=== PATIENT | female | born 1985 | race Caucasian/White ===

== ENCOUNTER 2016-05-21 16:15 | Emergency (ER) | payer OTHER ==
[2016-05-21 16:32] VITALS: BP 120/56; PULSE 93; TEMP 99.1; BMI 30.3
--- NOTE | 2016-05-21 17:38 | PDOC ---
History of Present Illness - General History Source: Patient Exam Limitations: No Limitations - History of Present Illness Initial Comments: 05/21/16 18:04 The patient is a 30 year old female with no significant past medical history, who presents to the ED with diffuse abdominal pain that began earlier today. Patient states she had a similar episode in mar/apr. She had an ultrasound and was diagnosed and treated for a UTI. Patient states the abdominal pain is worse while moving. Patient complains of some nausea, dysuria, and bloating, secondary to the abdominal pain. Patient denies fever, chills, vomiting. Patient states she has been eating normally PCP: Dr. Betty Shah <Karri Araujo - Last Filed: 05/21/16 18:15> <Rosemary Lariso - Last Filed: 05/21/16 22:26> - General Chief Complaint: Pain Stated Complaint: STOMACH PAIN Time Seen by Provider: 05/21/16 17:23 Past History <Karri Araujo - Last Filed: 05/21/16 18:15> - Psycho/Social/Smoking Cessation Hx Suicidal Ideation: No Smoking History: Never smoked Information on smoking cessation initiated: No <Rosemary Larios - Last Filed: 05/21/16 22:26> - Past Medical History Allergies/Adverse Reactions: Allergies Allergy/AdvReac Type Severity Reaction Status Date / Time No Known Allergies Allergy Verified 05/21/16 16:32 Home Medications: Ambulatory Orders Ibuprofen 800 mg PO TID #30 tablet 05/21/16 Oxycodone HCl/Acetaminophen [Percocet 5-325 mg Tablet] 1 - 2 tab PO Q6H #20 tablet MDD 4 05/21/16 Review of Systems - Review of Systems Able to Perform ROS?: Yes Comments:: 05/21/16 18:05 GENERAL/CONSTITUTIONAL: No fever or chills. No weakness. HEAD, EYES, EARS, NOSE AND THROAT: No change in vision. No ear pain or discharge. No sore throat. CARDIOVASCULAR: No chest pain or shortness of breath. RESPIRATORY: No cough, wheezing, or hemoptysis. GASTROINTESTINAL: + diffuse abdominal pain. + bloating. + nausea. No vomiting, diarrhea or constipation. GENITOURINARY: + dysuria. No frequency, or change in urination. MUSCULOSKELETAL: No joint or muscle swelling or pain. No neck or back pain. SKIN: No rash NEUROLOGIC: No headache, vertigo, loss of consciousness, or change in strength/ sensation. ENDOCRINE: No increased thirst. No abnormal weight change. HEMATOLOGIC/LYMPHATIC: No anemia, easy bleeding, or history of blood clots. ALLERGIC/IMMUNOLOGIC: No hives or skin allergy. <Karri Araujo - Last Filed: 05/21/16 18:15> *Physical Exam - Vital Signs Last Vital Signs Temp Pulse Resp BP Pulse Ox 99.1 F 93 H 18 120/56 100 05/21/16 16:29 05/21/16 16:29 05/21/16 16:29 05/21/16 16:29 05/21/16 16:29 - Physical Exam Comments: 05/21/16 18:15 GENERAL: Awake, alert, and fully oriented, in no acute distress HEAD: No signs of trauma EYES: PERRLA, EOMI, sclera anicteric, conjunctiva clear ENT: Auricles normal inspection, hearing grossly normal, nares patent, oropharynx clear without exudates. Moist mucosa NECK: Normal ROM, supple, no lymphadenopathy, JVD, or masses LUNGS: Breath sounds equal, clear to auscultation bilaterally. No wheezes, and no crackles HEART: Regular rate and rhythm, normal S1 and S2, no murmurs, rubs or gallops ABDOMEN: Abdominal tenderness diffusely, worse on right lower quadrant.Guarding on right lower quadrant, but no rebound. No masses. EXTREMITIES: Normal range of motion, no edema. No clubbing or cyanosis. No cords, erythema, or tenderness NEUROLOGICAL: Cranial nerves II through XII grossly intact. Normal speech, normal gait SKIN: Warm, Dry, normal turgor, no rashes or lesions noted. <Karri Araujo - Last Filed: 05/21/16 18:15> - Vital Signs Last Vital Signs Temp Pulse Resp BP Pulse Ox 99.1 F 93 H 18 120/56 100 05/21/16 16:29 05/21/16 16:29 05/21/16 16:29 05/21/16 16:29 05/21/16 16:29 <Rosemary Larios - Last Filed: 05/21/16 22:26> ED Treatment Course - ADDITIONAL ORDERS Additional order review: Laboratory Results 05/21/16 05/21/16 17:40 17:40 Urine Color Ltyellow Urine Appearance Slcloudy Urine pH 9.0 H Ur Specific [place] 1.019 Urine Protein Negative Urine Glucose (UA) Negative Urine Ketones Negative Urine Blood Negative Urine Nitrite Negative Urine Bilirubin Negative Urine Urobilinogen Negative Ur Leukocyte Esterase 1+ H Urine RBC 1 Urine WBC 7 Ur Epithelial Cells Moderate Urine Bacteria Rare Urine Mucus Rare Urine HCG, Qual Negative <Karri Araujo - Last Filed: 05/21/16 18:15> - LABORATORY CBC & Chemistry Diagram: 05/21/16 18:45 05/21/16 18:45 <Rosemary Larios - Last Filed: 05/21/16 22:26> Medical Decision Making - Medical Decision Making 05/21/16 19:[address] Hines. Noted to have RLQ and LLQ pain, worse on the R side. She is guarding on exam. DDx includes ovarian cyst vs appendicitis. Awaiting CT a/p. She has declined pain meds so far. <Rosemary Larios - Last Filed: 05/21/16 22:26> *DC/Admit/Observation/Transfer - Attestations Scribe Attestion: 05/21/16 18:06 Documentation prepared by Karri Araujo, acting as medical laboratory technologist for Rosemary Larios MD, . <Karri Araujo - Last Filed: 05/21/16 18:15> <Rosemary Larios - Last Filed: 05/21/16 22:26> Diagnosis at time of Disposition: Ovarian cyst Qualifiers: Laterality: bilateral Qualified Code(s): N83.20 - Unspecified ovarian cysts - Discharge Dispostion Disposition: HOME Condition at time of disposition: Good - Prescriptions Prescriptions: Ibuprofen 800 mg PO TID #30 tablet Oxycodone HCl/Acetaminophen [Percocet 5-325 mg Tablet] 1 - 2 tab PO Q6H #20 tablet MDD 4 - Referrals Referrals: Bradley Miranda MD [Staff Physician] - Betty Shah MD [Primary Care Provider] - - Patient Instructions Printed Discharge Instructions: DI for Ovarian Cyst
[2016-05-21 17:53] LABS: URINE APPEARANCE SLCLOUDY; URINE BILIRUBIN NEGATIVE (NEGATIVE); URINE BLOOD NEGATIVE (NEGATIVE); URINE COLOR LTYELLOW; URINE GLUCOSE (UA) NEGATIVE (NEGATIVE); URINE KETONE NEGATIVE (NEGATIVE); URINE NITRITE NEGATIVE (NEGATIVE); URINE PROTEIN NEGATIVE (NEGATIVE); URINE UROBILINOGEN NEGATIVE E.U./dl (0.2-1.0)
[2016-05-21 17:56] LABS: URINE LEUK ESTERASE 1+ (NEGATIVE)
[2016-05-21 17:57] LABS: URINE RBC 1 /hpf (0-3); URINE WBC 7 /hpf (3-5)
[2016-05-21 17:58] LABS: URINE BACTERIA RARE /hpf (NONE SEEN); URINE MUCUS RARE
[2016-05-21] MEDS ORDERED: SODIUM CHLORIDE 1,000 ML IV STA (18:14)
[2016-05-21 18:53] LABS: BASOPHIL 0.2 % (0-2.0); MCH 24.9 pg (25.7-33.7); MCHC 31.8 g/dl (32.0-36.0); MEAN CELL VOLUME 78.4 fl (80-96); MEAN PLT VOLUME 9.2 fl (7.5-11.1); NEUTROPHILS 82.3 % (42.8-82.8); PLATELET COUNT 224 K/MM3 (134-434); RDW 16.4 % (11.6-15.6); WHITE BLOOD COUNT 9.7 K/mm3 (4.0-10.0)
[2016-05-21 19:33] LABS: ALBUMIN 3.8 g/dl (3.4-5.0); ANION GAP 6 (8-16); BILIRUBIN,TOTAL 1.3 mg/dL (0.2-1.0); CALCIUM 8.4 mg/dL (8.5-10.1); CO2 26 mmol/L (21-32); CREATININE 0.7 mg/dL (0.55-1.02); GLUCOSE,RANDOM 96 mg/dL (74-106); SGOT/AST 12 U/L (15-37); SGPT/ALT 20 U/L (12-78)
[2016-05-21 19:34] LABS: ALK PHOS 66 U/L (45-117); TOT PROT 6.8 g/dl (6.4-8.2)
[2016-05-21] MEDS ORDERED: OXYCODONE/APAP 5/325MG COMBO TABLET PO ONE (21:50)
--- NOTE | 2016-05-21 21:51 | PDOC ---
*Physical Exam - Vital Signs Last Vital Signs Temp Pulse Resp BP Pulse Ox 99.1 F 93 H 18 120/56 100 05/21/16 16:29 05/21/16 16:29 05/21/16 16:29 05/21/16 16:29 05/21/16 16:29 ED Treatment Course - LABORATORY CBC & Chemistry Diagram: 05/21/16 18:45 05/21/16 18:45 - ADDITIONAL ORDERS Additional order review: Laboratory Results 05/21/16 05/21/16 05/21/16 18:45 17:40 17:40 Sodium 139 Potassium 4.0 Chloride 107 Carbon Dioxide 26 Anion Gap 6 L BUN 10 Creatinine 0.7 Creat Clearance w eGFR > 60 Random Glucose 96 Calcium 8.4 L Total Bilirubin 1.3 H AST 12 L ALT 20 Alkaline Phosphatase 66 Total Protein 6.8 Albumin 3.8 Urine Color Ltyellow Urine Appearance Slcloudy Urine pH 9.0 H Ur Specific [place] 1.019 Urine Protein Negative Urine Glucose (UA) Negative Urine Ketones Negative Urine Blood Negative Urine Nitrite Negative Urine Bilirubin Negative Urine Urobilinogen Negative Ur Leukocyte Esterase 1+ H Urine RBC 1 Urine WBC 7 Ur Epithelial Cells Moderate Urine Bacteria Rare Urine Mucus Rare Urine HCG, Qual Negative 05/21/16 18:45 RBC 4.29 MCV 78.4 L MCHC 31.8 L RDW 16.4 H MPV 9.2 Neutrophils % 82.3 Lymphocytes % 8.3 Monocytes % 9.2 Eosinophils % 0.0 Basophils % 0.2 - Medications Given in the ED: ED Medications Discontinued Medications Generic Name Dose Route Start Last Admin Trade Name Freq PRN Reason Stop Dose Admin Sodium Chloride 1,000 mls @ 1,000 mls/hr 05/21/16 18:14 05/21/16 18:26 Normal Saline - IV 05/21/16 19:13 1,000 mls/hr ASDIR STA Administration *DC/Admit/Observation/Transfer Diagnosis at time of Disposition: Cyst of ovary Qualifiers: Laterality: bilateral Qualified Code(s): N83.20 - Unspecified ovarian cysts - Discharge Dispostion Disposition: HOME Condition at time of disposition: Stable Admit: No - Referrals Referrals: Betty Shah MD [Primary Care Provider] - Bradley Miranda MD [Staff Physician] - - Patient Instructions Printed Discharge Instructions: DI for Ovarian Cyst - Post Discharge Activity
[2016-05-21] MEDS ORDERED: OXYCODONE/APAP 5/325MG COMBO TABLET ONE (22:05)
== END 2016-05-21 22:05 | disposition home or self-care (01) ==
LOC: JER 16:15
PROC: 3E0337Z Introduction of Electrolytic and Water Balance Substance into Peripheral Vein, Percutaneous Approach (ICD-10-PCS; principal; 2016-05-21)
DX: N83.292 Other ovarian cyst, left side (principal); N83.291 Other ovarian cyst, right side
CPT/HCPCS: 36415; 74177-TC; 80053; 81003; 81015; 84703; 85025; 96360; 99283-25

== ENCOUNTER 2016-11-15 14:28 | Emergency (ER) | payer OTHER ==
[2016-11-15 14:47] VITALS: TEMP 98.3; BMI 28.0
--- NOTE | 2016-11-15 14:50 | PDOC ---
History of Present Illness - General History Source: Patient Exam Limitations: No Limitations - History of Present Illness Initial Comments: 11/15/16 15:29 The patient is a 30 year old female with a significant past medical history of endometriosis, presenting to the Emergency Department with nausea and two episodes of vomiting today. The patient reports that the first episode of vomiting was at 12:30pm and the second was at 2:30pm. She denies blood in her vomit. She admits that she is on OCP, though she missed three days of pills so she took all three this morning, prior to vomiting. She states that she is at the end of her menstrual period. She admits that she ate at a new restaurant last night. She also admits to headache and dizziness. Patient states that she is not sexually active. 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 The patient denies abdominal pain, diarrhea, or constipation. Patient denies blurry vision, or visual changes. Patient denies chest pain, palpitations, and shortness of breath. Patient denies vaginal bleeding or discharge. Past Medical Hx: ovarian cysts, endometriosis <Paola Lomeli - Last Filed: 11/15/16 18:42> <Ady Zaman - Last Filed: 11/15/16 18:53> - General Chief Complaint: Nausea/Vomiting Stated Complaint: Nausea/Vomiting Time Seen by Provider: 11/15/16 14:50 Past History <Paola Lomeli - Last Filed: 11/15/16 18:42> - Past Medical History Other medical history: ENDOMETRIOSIS, ADD - Psycho/Social/Smoking Cessation Hx Suicidal Ideation: No Smoking History: Never smoked <Ady Zaman - Last Filed: 11/15/16 18:53> - Past Medical History Allergies/Adverse Reactions: Allergies Allergy/AdvReac Type Severity Reaction Status Date / Time No Known Allergies Allergy Verified 11/15/16 15:19 Home Medications: Ambulatory Orders Naproxen [Naprosyn -] 500 mg PO BID #60 tablet 11/15/16 Ondansetron [Zofran *Odt*] 8 mg SL TID #30 od.tablet 11/15/16 Review of Systems - Review of Systems Able to Perform ROS?: Yes Comments:: 11/15/16 15:29 GENERAL/CONSTITUTIONAL: No fever or chills. No weakness. HEAD, EYES, EARS, NOSE AND THROAT: No change in vision. No ear pain or discharge. No sore throat. CARDIOVASCULAR: No chest pain or shortness of breath. RESPIRATORY: No cough, wheezing, or hemoptysis. GASTROINTESTINAL: + nausea, + vomiting. No diarrhea or constipation. GENITOURINARY: No dysuria, frequency, or change in urination. MUSCULOSKELETAL: No joint or muscle swelling or pain. No neck or back pain. SKIN: No rash NEUROLOGIC: No headache, vertigo, loss of consciousness, or change in strength/ sensation. ENDOCRINE: No increased thirst. No abnormal weight change. HEMATOLOGIC/LYMPHATIC: No anemia, easy bleeding, or history of blood clots. ALLERGIC/IMMUNOLOGIC: No hives or skin allergy. <Paola Lomeli - Last Filed: 11/15/16 18:42> *Physical Exam - Vital Signs Last Vital Signs Temp Pulse Resp BP Pulse Ox 98.3 F 62 18 123/63 100 11/15/16 14:43 11/15/16 14:43 11/15/16 14:43 11/15/16 14:43 11/15/16 14:43 - Physical Exam Comments: 11/15/16 15:30 GENERAL: Awake, alert, and fully oriented, in no acute distress HEAD: No signs of trauma EYES: PERRLA, EOMI, sclera anicteric, conjunctiva clear ENT: Auricles normal inspection, hearing grossly normal, nares patent, oropharynx clear without exudates. Moist mucosa NECK: Normal ROM, supple, no lymphadenopathy, JVD, or masses LUNGS: Breath sounds equal, clear to auscultation bilaterally. No wheezes, and no crackles HEART: Regular rate and rhythm, normal S1 and S2, no murmurs, rubs or gallops ABDOMEN: Soft, nontender, slightly hyperactive bowel sounds. No epigastric tenderness. No guarding, no rebound. No masses EXTREMITIES: Pain to right hand, swelling over the thenar eminence and surrounding palm. Negative tinnels sign. Hand neurovascularly intact. Normal range of motion. No clubbing or cyanosis. No cords, or erythema NEUROLOGICAL: Cranial nerves II through XII grossly intact. Normal speech, normal gait SKIN: Warm, Dry, normal turgor, no rashes or lesions noted. <Paola Lomeli - Last Filed: 11/15/16 18:42> - Vital Signs Last Vital Signs Temp Pulse Resp BP Pulse Ox 98.3 F 62 18 123/63 100 11/15/16 14:43 11/15/16 14:43 11/15/16 14:43 11/15/16 14:43 11/15/16 14:43 <Ady Zaman - Last Filed: 11/15/16 18:53> ED Treatment Course - LABORATORY CBC & Chemistry Diagram: 11/15/16 15:45 11/15/16 15:45 <Paola Lomeli - Last Filed: 11/15/16 18:42> - LABORATORY CBC & Chemistry Diagram: 11/15/16 15:45 11/15/16 15:45 <Ady Zaman - Last Filed: 11/15/16 18:53> *DC/Admit/Observation/Transfer - Attestations Scribe Attestion: 11/15/16 15:31 Documentation prepared by Paola Lomeli, acting as medical dosimetrist for Ady Zaman DO. <Paola Lomeli - Last Filed: 11/15/16 18:42> - Discharge Dispostion Admit: No - Attestations Physician Attestion: 11/15/16 14:50 I, Dr. Ady Zaman, attest that this document has been prepared under my direction and personally reviewed by me in its entirety. I further attest, that it accurately reflects all work, treatment, procedures and medical decision -making performed by me. <Ady Zaman - Last Filed: 11/15/16 18:53> Diagnosis at time of Disposition: Intermittent pain and swelling of hand Nausea and vomiting Qualifiers: Vomiting type: unspecified Vomiting Intractability: unspecified Qualified Code( s): R11.2 - Nausea with vomiting, unspecified - Discharge Dispostion Disposition: HOME Condition at time of disposition: Good - Prescriptions Prescriptions: Naproxen [Naprosyn -] 500 mg PO BID #60 tablet Ondansetron [Zofran *Odt*] 8 mg SL TID #30 od.tablet - Referrals Referrals: Aidan Salgado MD [Staff Physician] - - Patient Instructions Printed Discharge Instructions: DI for Nausea -- Adult, DI for Vomiting -- Adult, DI for Tendinitis - Post Discharge Activity Work/School Note: Back to Work
[2016-11-15] MEDS ORDERED: ONDANSETRON 4 MG/2 ML VIAL IVPB ONE (15:28)
[2016-11-15] MEDS ORDERED: SODIUM CHLORIDE 1,000 ML IV STA (15:28)
[2016-11-15] MEDS ORDERED: ONDANSETRON 4 MG/2 ML VIAL ONE (15:35)
[2016-11-15 16:42] LABS: INR 1.11 (0.82-1.09); PROTHROMBIN TIME (PATIENT) 12.2 SEC (9.98-11.88)
[2016-11-15 16:52] LABS: BASOPHIL 0.7 % (0-2.0); EOSINOPHIL 0.3 % (0-4.5); MCH 26.2 pg (25.7-33.7); MCHC 32.5 g/dl (32.0-36.0); MEAN CELL VOLUME 80.8 fl (80-96); MEAN PLT VOLUME 9.9 fl (7.5-11.1); NEUTROPHILS 79.4 % (42.8-82.8); PLATELET COUNT 241 K/MM3 (134-434); RDW 16.3 % (11.6-15.6); WHITE BLOOD COUNT 7.5 K/mm3 (4.0-10.0)
[2016-11-15 17:00] LABS: URINE APPEARANCE CLEAR; URINE BILIRUBIN NEGATIVE (NEGATIVE); URINE BLOOD NEGATIVE (NEGATIVE); URINE COLOR LT. YELLOW; URINE GLUCOSE (UA) NEGATIVE (NEGATIVE); URINE KETONE NEGATIVE (NEGATIVE); URINE LEUK ESTERASE NEGATIVE (NEGATIVE); URINE NITRITE NEGATIVE (NEGATIVE); URINE PROTEIN NEGATIVE (NEGATIVE); URINE UROBILINOGEN 0.2 E.U/dl E.U./dl (0.2-1.0)
[2016-11-15 17:02] LABS: ALBUMIN 3.9 g/dl (3.4-5.0); ALK PHOS 53 U/L (45-117); ANION GAP 7 (8-16); BILIRUBIN,TOTAL 0.5 mg/dL (0.2-1.0); CALCIUM 8.8 mg/dL (8.5-10.1); CO2 25 mmol/L (21-32); CREATININE 0.8 mg/dL (0.55-1.02); GLUCOSE,RANDOM 87 mg/dL (74-106); SGOT/AST 15 U/L (15-37); SGPT/ALT 22 U/L (12-78); TOT PROT 7.2 g/dl (6.4-8.2)
[2016-11-15 19:02] VITALS: BP 120/79; PULSE 69
[2016-11-15 19:40] LABS: PH,URINE 6.5 (5.0-8.0)
== END 2016-11-15 19:02 | disposition home or self-care (01) ==
LOC: JER 14:28
PROC: 3E033GC Introduction of Other Therapeutic Substance into Peripheral Vein, Percutaneous Approach (ICD-10-PCS; principal; 2016-11-15)
DX: R11.2 Nausea with vomiting, unspecified (principal); M79.641 Pain in right hand; M70.841 Other soft tissue disorders related to use, overuse and pressure, right hand; Y93.89 Activity, other specified
CPT/HCPCS: 36415; 80053; 81003; 84703; 85025; 85610; 99283-25

== ENCOUNTER 2017-03-23 00:06 | Emergency (ER) | payer OTHER ==
[2017-03-23 00:28] VITALS: BP 118/71; PULSE 69; TEMP 98.2; BMI 28.0
--- NOTE | 2017-03-23 00:36 | PDOC ---
History of Present Illness - General Chief Complaint: Urinary Problem Stated Complaint: URINARY PROBLEM Time Seen by Provider: 03/23/17 00:24 History Source: Patient Exam Limitations: No Limitations - History of Present Illness Travel History: No Initial Comments: 03/23/17 00:33 31-year-old female with no medical history presents to the emergency department complaining of urinary frequency/urgency/hesitancy, dysuria, burning upon urination without flank pains, abdominal pains, fever/chills, nausea/vomiting, chest pain, shortness of breath. Patient states it feels like her previous UTI. Timing/Duration: reports: intermittent Past History - Past Medical History Allergies/Adverse Reactions: Allergies Allergy/AdvReac Type Severity Reaction Status Date / Time No Known Allergies Allergy Verified 03/23/17 00:19 Home Medications: Ambulatory Orders Nitrofurantoin Monohyd/M-Cryst [Macrobid -] 100 mg PO BID #14 capsule 03/23/17 COPD: No Other medical history: denies - Suicide/Smoking/Psychosocial Hx Smoking History: Never smoked Review of Systems - Review of Systems Able to Perform ROS?: Yes Comments:: 03/23/17 00:33 CONSTITUTIONAL: Absent: fever, chills, diaphoresis, generalized weakness, malaise, loss of appetite GASTROINTESTINAL: Absent: abdominal pain, abdominal distension, nausea, vomiting, diarrhea, constipation, melena, hematochezia GENITOURINARY: +dysuria, frequency, urgency, hesitancy, Absent: hematuria, flank pain, genital pain SKIN: Absent: rash, itching, pallor HEMATOLOGIC/IMMUNOLOGIC: Absent: easy bleeding, easy bruising, lymphadenopathy, frequent infections Is the patient limited Arabic proficient: No *Physical Exam - Vital Signs Last Vital Signs Temp Pulse Resp BP Pulse Ox 98.2 F 69 18 118/71 99 03/23/17 00:15 03/23/17 00:15 03/23/17 00:15 03/23/17 00:15 03/23/17 00:15 - Physical Exam Comments: 03/23/17 00:33 GENERAL: Well developed, well nourished. Awake and alert. No acute distress. NECK: Supple. Full ROM. No JVD. Carotid pulses 2+ and symmetric, without bruits. No thyromegaly. No lymphadenopathy. CARDIOVASCULAR: Regular rate and rhythm. No murmurs, rubs, or gallops. Distal pulses are 2+ and symmetric. PULMONARY: No evidence of respiratory distress. Lungs clear to auscultation bilaterally. No wheezing, rales or rhonchi. ABDOMINAL: Soft. Non-tender. Non-distended. No rebound or guarding. No organomegaly. Normoactive bowel sounds. MUSCULOSKELETAL Normal range of motion at all joints. No bony deformities or tenderness. No CVA tenderness. EXTREMITIES: No cyanosis. No clubbing. No edema. No calf tenderness. SKIN: Warm and dry. Normal capillary refill. No rashes. No jaundice. Progress Note - Progress Note Progress Note: Pt informed her urine is clean but due to her symptoms:urinary urgency/hesitancy /dysuria, burn upon urination, I will tx with macrobid Patient was explained that her urine analysis came back clean. She will be treated for UTI. Patient was informed of possible STD. Patient states she has been abstinence for over 5 years. *DC/Admit/Observation/Transfer Diagnosis at time of Disposition: UTI (urinary tract infection) Qualifiers: Urinary tract infection type: acute cystitis Hematuria presence: without hematuria Qualified Code(s): N30.00 - Acute cystitis without hematuria - Discharge Dispostion Condition at time of disposition: Stable Admit: No - Prescriptions Prescriptions: Nitrofurantoin Monohyd/M-Cryst [Macrobid -] 100 mg PO BID #14 capsule - Referrals Referrals: Mahin Michaels [Primary Care Provider] - Alexander Bledsoe MD [Staff Physician] - - Patient Instructions Printed Discharge Instructions: DI for Urinary Tract Infection (UTI) Additional Instructions: Increase fluids Take antibiotics as prescribed Pelvic rest Follow-up with your physician or the urologist/Dr. Bledsoe listed on your discharge Return back to the emergency department for severe/persistent or worsening symptoms As explained to you in the emergency department, urinary urine analysis does not show any sign of urinary tract infection due to your symptoms of: Urgency/ frequency/hesitancy and burning upon urination, you will be treated with an antibiotic. A urine culture has been sent and the results should come in and approximately 3-4 days. - Post Discharge Activity
--- NOTE | 2017-03-23 00:53 | PDOC ---
*Physical Exam - Vital Signs Last Vital Signs Temp Pulse Resp BP Pulse Ox 98.2 F 69 18 118/71 99 03/23/17 00:15 03/23/17 00:15 03/23/17 00:15 03/23/17 00:15 03/23/17 00:15 - Physical Exam Comments: 03/23/17 00:53 The patient was examined by [ALINA Soto] under my direct supervision. I personally evaluated the patient. I concur with the above findings and the plan of care. *DC/Admit/Observation/Transfer Diagnosis at time of Disposition: UTI (urinary tract infection) Qualifiers: Urinary tract infection type: acute cystitis Hematuria presence: without hematuria Qualified Code(s): N30.00 - Acute cystitis without hematuria - Discharge Dispostion Condition at time of disposition: Stable - Referrals Referrals: Mahin Michaels [Primary Care Provider] - Alexander Bledsoe MD [Staff Physician] - - Patient Instructions Printed Discharge Instructions: DI for Urinary Tract Infection (UTI) Additional Instructions: Increase fluids Take antibiotics as prescribed Pelvic rest Follow-up with your physician or the urologist/Dr. Bledsoe listed on your discharge Return back to the emergency department for severe/persistent or worsening symptoms - Post Discharge Activity
[2017-03-23 00:57] LABS: URINE APPEARANCE CLEAR; URINE BILIRUBIN NEGATIVE (NEGATIVE); URINE BLOOD NEGATIVE (NEGATIVE); URINE COLOR LTYELLOW; URINE GLUCOSE (UA) NEGATIVE (NEGATIVE); URINE KETONE 1+ (NEGATIVE); URINE NITRITE NEGATIVE (NEGATIVE); URINE PROTEIN NEGATIVE (NEGATIVE); URINE UROBILINOGEN NEGATIVE mg/dL (0.2-1.0)
[2017-03-23 15:04] LABS: URINE LEUK ESTERASE Negative (NEGATIVE)
== END 2017-03-23 01:50 | disposition home or self-care (01) ==
LOC: JER 00:06
DX: N30.01 Acute cystitis with hematuria (principal)
CPT/HCPCS: 81003; 84703; 87086; 99282-25

== ENCOUNTER 2017-08-04 01:16 | Emergency (ER) | payer OTHER ==
[2017-08-04] MEDS ORDERED: FLUORESCEIN NA 1 EA STRIP ONE (02:05)
[2017-08-04] MEDS ORDERED: TETRACAINE 0.5% OPHTH SOLN 2 ML BOTTLE ONE (02:05)
[2017-08-04 02:06] VITALS: BP 115/73; PULSE 61; TEMP 98.2; BMI 26.8
--- NOTE | 2017-08-04 02:30 | PDOC ---
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 Patient notes a "joseph" feeling to her left eye. Patient does not remember any splashes into her eye, cuts or scratches. Patient denies change in vision. REVIEW OF SYSTEMS: GENERAL/CONSTITUTIONAL: No fever or chills. No weakness. No weight change. HEAD, EYES, EARS, NOSE AND THROAT: No change in vision. Drainage and pruritus to left eye. No ear pain or discharge. No sore throat. RESPIRATORY: No cough, wheezing, or hemoptysis. SKIN : No rash or easy bruising. NEUROLOGIC: No headache, vertigo, loss of consciousness, or loss of sensation. HEMATOLOGIC/LYMPHATIC: No lymphadenopathy ALLERGIC/IMMUNOLOGIC: No hives or skin allergy. No latex allergy. PHYSICAL EXAM: GENERAL: The patient is awake, alert, and fully oriented, in no acute distress. HEAD: Normal with no signs of trauma. EYES: Pupils equal, round and reactive to light, extraocular movements intact, sclera anicteric, conjunctiva injected, extending to limbus after fluorescein staining, no corneal abrasion noted. ENT: Ears normal, nares patent, oropharynx clear without exudates. Moist mucous membranes. NECK: Normal range of motion, supple without lymphadenopathy, JVD, or masses. LUNGS: Breath sounds equal, clear to auscultation bilaterally. No wheezes, and no crackles. NEUROLOGICAL: Cranial nerves II through XII grossly intact. Normal speech, normal gait. SKIN: No erythema no facial edema. Warm, Dry, normal turgor, no rashes or lesions noted. Past History - Past Medical History Allergies/Adverse Reactions: Allergies Allergy/AdvReac Type Severity Reaction Status Date / Time No Known Allergies Allergy Verified 03/23/17 00:19 Home Medications: Ambulatory Orders Nitrofurantoin Monohyd/M-Cryst [Macrobid -] 100 mg PO BID #14 capsule 03/23/17 Erythromycin 0.5% Eye Ointment [Erythromycin 0.5% Eye Ointment -] 1 applic OS QID 5 Days #1 tube 08/04/17 COPD: No GI Disorders: Yes (endometriosis) - Suicide/Smoking/Psychosocial Hx Smoking History: Never smoked *Physical Exam - Vital Signs Last Vital Signs Temp Pulse Resp BP Pulse Ox 98.2 F 61 16 115/73 100 08/04/17 02:04 08/04/17 02:04 08/04/17 02:04 08/04/17 02:04 08/04/17 02:04 Medical Decision Making - Medical Decision Making 08/04/17 03:19 CC: "joseph" sensation to left eye A/P: 31-year-old healthy female with foreign-body sensation to her left eye with scleral injection. Visual acuity 20/20 in left eye, right eye, both eyes Milky white discharge noted to the inner canthus of the left eye. No corneal injuries noted both before and after fluorescein staining Conjunctiva injected left eye Scleral injection noted which is extends to the limbus Diagnosis: Conjunctivitis Erythromycin ointment 4 times a day for 5 days *DC/Admit/Observation/Transfer Diagnosis at time of Disposition: Conjunctivitis Qualifiers: Conjunctivitis type: acute Acute conjunctivitis type: unspecified Laterality: left Qualified Code(s): H10.32 - Unspecified acute conjunctivitis, left eye - Discharge Dispostion Disposition: HOME Condition at time of disposition: Stable Admit: No - Prescriptions Prescriptions: Erythromycin 0.5% Eye Ointment [Erythromycin 0.5% Eye Ointment -] 1 applic OS QID 5 Days #1 tube - Referrals Referrals: Mahin Michaels [Primary Care Provider] - - Patient Instructions Printed Discharge Instructions: DI for Conjunctivitis Additional Instructions: Wash your hands every time you touch her face. Do not work for the next 5 days as you may be contagious. Return to emergency department for blurry vision, drainage or discharge from the eyes, fevers, chills, headaches, dizziness, loss of balance or coordination or any other concerns. Thank you very much for choosing us to provide your emergent healthcare needs. - Post Discharge Activity Forms/Work/School Notes: Back to Work
[2017-08-04] MEDS ORDERED: ERYTHROMYCIN 0.5% OPHTHALMIC OINTMENT 3.5 GM TUBE ONE (02:48)
[2017-08-04] MEDS ORDERED: ERYTHROMYCIN 0.5% OPHTHALMIC OINTMENT 3.5 GM TUBE OS ONE (02:51)
[2017-08-04] MEDS ORDERED: FLUORESCEIN NA 1 EA STRIP OS ONE (02:59)
[2017-08-04] MEDS ORDERED: TETRACAINE 0.5% HCL 0.6ML DROPPER.BOTTLE OS ONE (02:59)
== END 2017-08-04 03:04 | disposition home or self-care (01) ==
LOC: JER 01:16
PROC: 4A07X0Z Measurement of Visual Acuity, External Approach (ICD-10-PCS; principal; 2017-08-04)
DX: H10.32 Unspecified acute conjunctivitis, left eye (principal)
CPT/HCPCS: 99173; 99281-25

== ENCOUNTER 2017-12-18 20:48 | Emergency (ER) | payer OTHER ==
[2017-12-18] MEDS ORDERED: IBUPROFEN 600 MG TABLET (FP) PO ONE ×2 (21:33→22:28)
--- NOTE | 2017-12-18 21:33 | PDOC ---
Rapid Medical Evaluation Chief Complaint: Cold Symptoms Time Seen by Provider: 12/18/17 21:28 Medical Evaluation: Allergies Allergy/AdvReac Type Severity Reaction Status Date / Time No Known Allergies Allergy Verified 03/23/17 00:19 12/18/17 21:32 c/o fever x 2 days with slight cough and bodyaches. pmhx; endometriosis, tonsillectomy PE; patient alert ox3, breath sounds clear A; fever P: UA, UCX, chest xray 12/18/17 21:36 Discharge Disposition - Diagnosis Fever and chills - Referrals - Patient Instructions - Post Discharge Activity
[2017-12-18 21:37] VITALS: BMI 27.5
[2017-12-18 22:18] LABS: URINE APPEARANCE CLEAR; URINE BILIRUBIN NEGATIVE (<2.0 mg/dL); URINE COLOR LTYELLOW; URINE GLUCOSE (UA) NEGATIVE (NEGATIVE); URINE KETONE 2+ (NEGATIVE); URINE LEUK ESTERASE NEGATIVE (NEGATIVE); URINE NITRITE NEGATIVE (NEGATIVE); URINE PROTEIN NEGATIVE (NEGATIVE); URINE UROBILINOGEN NEGATIVE mg/dL (0.2-1.0)
[2017-12-18 22:56] LABS: HCG,QUALITATIVE URINE NEGATIVE
[2017-12-18] MEDS ORDERED: SODIUM CHLORIDE 1,000 ML IV STA (22:59)
[2017-12-18 23:01] LABS: EPI CELLS RARE /HPF (FEW); URINE MUCUS RARE
--- NOTE | 2017-12-18 23:11 | PDOC ---
History of Present Illness - General Chief Complaint: Cold Symptoms Stated Complaint: FEVER Time Seen by Provider: 12/18/17 21:28 History Source: Patient - History of Present Illness Initial Comments: 12/19/17 01:15 31-year-old female with fever, body aches, chills, headache, cough for 2 days. Denies nausea vomiting diarrhea, abdominal pain, neck pain, urinary symptoms, vaginal symptoms. LMP 12/16/2017. Past medical history of endometriosis Past History - Past Medical History Allergies/Adverse Reactions: Allergies Allergy/AdvReac Type Severity Reaction Status Date / Time No Known Allergies Allergy Verified 12/18/17 21:33 Home Medications: Ambulatory Orders Nitrofurantoin Monohyd/M-Cryst [Macrobid -] 100 mg PO BID #14 capsule 03/23/17 Erythromycin 0.5% Eye Ointment [Erythromycin 0.5% Eye Ointment -] 1 applic OS QID 5 Days #1 tube 08/04/17 Azithromycin [Zithromax 250mg Tablets -] 250 mg PO UTDICT #6 tab 12/19/17 COPD: No GI Disorders: Yes (endometriosis) - Suicide/Smoking/Psychosocial Hx Smoking History: Never smoked Have you smoked in the past 12 months: No Information on smoking cessation initiated: No Hx Alcohol Use: No Drug/Substance Use Hx: No Substance Use Type: None *Physical Exam - Vital Signs Last Vital Signs Temp Pulse Resp BP Pulse Ox 102.4 F H 101 H 18 112/66 100 12/18/17 21:34 12/18/17 21:34 12/18/17 21:34 12/18/17 21:34 12/18/17 21:34 - Physical Exam General Appearance: Yes: Mild Distress HEENT: negative: Tonsillar Erythema Respiratory/Chest: positive: Lungs Clear, Normal Breath Sounds Cardiovascular: positive: Regular Rate, Tachycardia Gastrointestinal/Abdominal: positive: Normal Bowel Sounds, Soft. negative: Tender Musculoskeletal: positive: Normal Inspection Extremity: positive: Normal Capillary Refill, Normal Inspection, Normal Range of Motion Integumentary: positive: Normal Color, Dry, Warm Neurologic: positive: Fully Oriented, Alert, Normal Mood/Affect ED Treatment Course - LABORATORY CBC & Chemistry Diagram: 12/18/17 23:44 12/18/17 23:44 - ADDITIONAL ORDERS Additional order review: Laboratory Results 12/18/17 21:41 Urine Color Ltyellow Urine Appearance Clear Urine pH 5.0 Ur Specific [place] 1.023 Urine Protein Negative Urine Glucose (UA) Negative Urine Ketones 2+ H Urine Blood 3+ H Urine Nitrite Negative Urine Bilirubin Negative Urine Urobilinogen Negative Ur Leukocyte Esterase Negative Urine WBC (Auto) 1 Urine RBC (Auto) 13 Ur Epithelial Cells Rare Urine Mucus Rare Urine HCG, Qual Negative - RADIOLOGY Radiology Studies Ordered: Category Date Time Status CHEST PA & LAT [RAD] Stat Radiology 12/18/17 21:34 Ordered Chest X-Ray Result: No Infiltrates - Medications Given in the ED: ED Medications Discontinued Medications Generic Name Dose Route Start Last Admin Trade Name Freq PRN Reason Stop Dose Admin Ibuprofen 600 mg 12/18/17 21:33 12/18/17 22:29 Motrin - PO 12/18/17 21:34 600 mg ONCE ONE Administration *DC/Admit/Observation/Transfer Diagnosis at time of Disposition: Fever and chills, Bronchitis - Discharge Dispostion Disposition: HOME - Prescriptions Prescriptions: Azithromycin [Zithromax 250mg Tablets -] 250 mg PO UTDICT #6 tab - Referrals Referrals: Mahin Michaels [Primary Care Provider] - - Patient Instructions Printed Discharge Instructions: Acute Bronchitis Additional Instructions: drink plenty of fluids. Take azithromycin as prescribed. take ibuprofen every 6 hours as needed for fever. follow-up with your doctor as soon a possible - Post Discharge Activity
--- NOTE | 2017-12-18 23:21 | PDOC ---
*Physical Exam - Vital Signs Last Vital Signs Temp Pulse Resp BP Pulse Ox 102.4 F H 101 H 18 112/66 100 12/18/17 21:34 12/18/17 21:34 12/18/17 21:34 12/18/17 21:34 12/18/17 21:34 ED Treatment Course - ADDITIONAL ORDERS Additional order review: Laboratory Results 12/18/17 21:41 Urine Color Ltyellow Urine Appearance Clear Urine pH 5.0 Ur Specific [place] 1.023 Urine Protein Negative Urine Glucose (UA) Negative Urine Ketones 2+ H Urine Blood 3+ H Urine Nitrite Negative Urine Bilirubin Negative Urine Urobilinogen Negative Ur Leukocyte Esterase Negative Urine WBC (Auto) 1 Urine RBC (Auto) 13 Ur Epithelial Cells Rare Urine Mucus Rare Urine HCG, Qual Negative - Medications Given in the ED: ED Medications Discontinued Medications Generic Name Dose Route Start Last Admin Trade Name Freq PRN Reason Stop Dose Admin Ibuprofen 600 mg 12/18/17 21:33 12/18/17 22:29 Motrin - PO 12/18/17 21:34 600 mg ONCE ONE Administration Medical Decision Making - Medical Decision Making 12/18/17 23:21 agree with care from XOCHITL Mei *DC/Admit/Observation/Transfer Diagnosis at time of Disposition: Fever and chills - Referrals Referrals: Mahin Michaels [Primary Care Provider] - - Patient Instructions - Post Discharge Activity
[2017-12-19] LABS: BASO % 0.3 % (0-2.0); HEMATOCRIT 33.3 % (32.4-45.2); HEMOGLOBIN 11.4 GM/dL (10.7-15.3); LYMPH % 16.3 % (8-40); MCH 29.5 pg (25.7-33.7); MCHC 34.1 g/dl (32.0-36.0); MEAN CELL VOLUME 86.4 fl (80-96); MEAN PLT VOLUME 9.9 fl (7.5-11.1); NEUT % 76.4 % (42.8-82.8); PLATELET COUNT 163 K/MM3 (134-434); RBC 3.86 M/mm3 (3.60-5.2); WHITE BLOOD COUNT 4.9 K/mm3 (4.0-10.0)
[2017-12-19 00:27] LABS: ALBUMIN 3.7 g/dl (3.4-5.0); ANION GAP 9 (8-16); BLOOD UREA NITROGEN 14 mg/dL (7-18); CALCIUM 8.5 mg/dL (8.5-10.1); CHLORIDE 102 mmol/L (98-107); CO2 24 mmol/L (21-32); CREATININE 0.8 mg/dL (0.55-1.02); GLUCOSE,RANDOM 81 mg/dL (74-106); POTASSIUM 3.6 mmol/L (3.5-5.1); SGOT/AST 20 U/L (15-37); SGPT/ALT 29 U/L (12-78); SODIUM 135 mmol/L (136-145)
[2017-12-19 00:28] LABS: ALK PHOS 60 U/L (45-117); BILIRUBIN,TOTAL 0.7 mg/dL (0.2-1.0); TOT PROT 6.8 g/dl (6.4-8.2)
[2017-12-19 01:25] VITALS: PULSE 78; TEMP 98.1
[2017-12-19 01:28] VITALS: BP 107/61
== END 2017-12-19 01:31 | disposition home or self-care (01) ==
LOC: JER 20:48
PROC: 3E0337Z Introduction of Electrolytic and Water Balance Substance into Peripheral Vein, Percutaneous Approach (ICD-10-PCS; principal; 2017-12-18)
DX: J40 Bronchitis, not specified as acute or chronic (principal); R50.9 Fever, unspecified
CPT/HCPCS: 36415; 71046-TC-FY; 80053; 81003; 81015; 84703; 85025; 87086; 99282-25; J7030

== ENCOUNTER 2018-01-03 09:36 | Emergency (ER) | payer OTHER ==
[2018-01-03 09:55] VITALS: BP 137/34; PULSE 79; TEMP 98.6; BMI 28.3
--- NOTE | 2018-01-03 10:38 | PDOC ---
History of Present Illness - General Chief Complaint: Itching Stated Complaint: ALERGIC REACTION Time Seen by Provider: 01/03/18 10:16 History Source: Patient Exam Limitations: No Limitations - History of Present Illness Initial Comments: 01/03/18 10:35 32 year old female complaining of awakening today with itching all over body and swelling of face and tongue. Reports no difficulty swallowing or breathing. Also states no allergies to medications or food. Ate wheat bread with yoruba spread yesterday and cannot recall new medications, soaps or lotion. Severity: Yes: mild Location: reports: extremities, face, hands, scalp Respiratory Risk Factors: reports: no cause identified Modifying Factors: improves with: other (no intervention so far) Associated Symptoms: reports: denies symptoms Past History - Past Medical History Allergies/Adverse Reactions: Allergies Allergy/AdvReac Type Severity Reaction Status Date / Time No Known Allergies Allergy Verified 01/03/18 09:51 Home Medications: Ambulatory Orders Diphenhydramine HCl [Benadryl -] 25 mg PO Q8H #21 capsule 01/03/18 Prednisone 5 mg PO DAILY #3 tab.ds.pk 01/03/18 COPD: No GI Disorders: Yes (endometriosis) - Immunization History Immunization Up to Date: Yes - Suicide/Smoking/Psychosocial Hx Smoking History: Never smoked Have you smoked in the past 12 months: No Hx Alcohol Use: No Drug/Substance Use Hx: No Substance Use Type: None Review of Systems - Review of Systems Constitutional: No: Chills, Fever, Loss of Appetite, Malaise HEENTM: No: Throat Pain Respiratory: Yes: Cough. No: Orthopnea, Shortness of Breath, Wheezing Cardiac (ROS): No: Chest Pain, Lightheadedness, Palpitations ABD/GI: No: Nausea, Poor Appetite, Rectal Bleeding, Indigestion, Abdominal cramping Integumentary: Yes: Pruritus. No: Bruising Neurological: No: Headache, Numbness, Seizure, Tingling Endocrine: No: Increased Hunger Hematologic/Lymphatic: No: See HPI, Bleeding Diathesis *Physical Exam - Vital Signs Last Vital Signs Temp Pulse Resp BP Pulse Ox 98.6 F 79 19 137/34 100 01/03/18 09:51 01/03/18 09:51 01/03/18 09:51 01/03/18 09:51 01/03/18 09:51 - Physical Exam General Appearance: Yes: Nourished, Appropriately Dressed. No: Apparent Distress HEENT: positive: KENAN, TMs Normal, Pharynx Normal, Other (no swelling of tongue , clear speech). negative: Pharyngeal Erythema, Tonsillar Erythema, Nasal Congestion Neck: positive: Supple. negative: Lymphadenopathy (R), Lymphadenopathy (L) Respiratory/Chest: positive: Lungs Clear, Normal Breath Sounds. 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 NML intact, Fully Oriented Medical Decision Making - Medical Decision Making 01/03/18 10:41 32 year old female with itching and swelling of tongue this am benadryl observe 01/03/18 19:07 symptoms better, less itching felt tongue to be less heavy no shortness of breath *DC/Admit/Observation/Transfer Diagnosis at time of Disposition: Allergic reaction Qualifiers: Encounter type: initial encounter Qualified Code(s): T78.40XA - Allergy, unspecified, initial encounter - Discharge Dispostion Disposition: HOME Condition at time of disposition: Good Decision to Admit order: No - Prescriptions Prescriptions: Diphenhydramine HCl [Benadryl -] 25 mg PO Q8H #21 capsule Prednisone 5 mg PO DAILY #3 tab.ds.pk - Referrals Referrals: Mahin Michaels [Primary Care Provider] - Call tomorrow - Patient Instructions Printed Discharge Instructions: DI for General Allergic Reactions Additional Instructions: Please take benadryl every 6 hours as needed for itching Please take prednisone 1 tab daily for 3 days Call primary physician for follow up appointment Return to ed for worsening symptoms especially difficulty swallowing, swelling of tongue or swelling of throat - Post Discharge Activity Forms/Work/School Notes: Back to Work
[2018-01-03] MEDS ORDERED: diphenhydrAMINE HCL 25 MG CAPSULE (FP) PO ONE ×2 (10:50→10:55)
== END 2018-01-03 11:44 | disposition home or self-care (01) ==
LOC: JERFT 09:36
DX: T78.40XA Allergy, unspecified, initial encounter (principal)
CPT/HCPCS: 99281-25

== ENCOUNTER 2018-06-18 14:12 | Emergency (ER) | payer OTHER ==
[2018-06-18 14:47] VITALS: BP 140/75; PULSE 96; TEMP 101.5; BMI 28.9
[2018-06-18] MEDS ORDERED: ACETAMINOPHEN 325 MG TABLET (FP) PO ONE (14:48)
--- NOTE | 2018-06-18 14:48 | PDOC ---
Rapid Medical Evaluation Chief Complaint: Respiratory Medical Evaluation: Allergies Allergy/AdvReac Type Severity Reaction Status Date / Time No Known Allergies Allergy Verified 06/18/18 14:44 Vital Signs Temp Pulse Resp BP Pulse Ox 101.5 F H 96 H 18 140/75 99 06/18/18 14:45 06/18/18 14:45 06/18/18 14:45 06/18/18 14:45 06/18/18 14:45 06/18/18 14:47 I have performed a brief in-person evaluation of this patient. The patient presents with a chief complaint of:malaise, cough and fever x 2 days. Sister dx w/ flu yesterday Pertinent physical exam findings:Low grade fever I have ordered the following:flu swab sent/tylenol The patient will proceed to the ED for further evaluation. Discharge Disposition - Diagnosis Viral syndrome - Referrals - Patient Instructions - Post Discharge Activity
[2018-06-18] MEDS ORDERED: ACETAMINOPHEN 325 MG TABLET (FP) ONE (15:49)
--- NOTE | 2018-06-18 17:06 | PDOC ---
History of Present Illness - General Chief Complaint: Respiratory Stated Complaint: BODYACHE FLU SYMPTOMS Time Seen by Provider: 06/18/18 16:16 - History of Present Illness Initial Comments: 06/18/18 17:04 32-year-old female with a past medical history significant for ADHD presents for evaluation of flulike symptoms fever chills night sweats and nasal congestion which started in the middle of the night last night. She does have a sister who tested positive for flu yesterday. Past History - Past Medical History Allergies/Adverse Reactions: Allergies Allergy/AdvReac Type Severity Reaction Status Date / Time No Known Allergies Allergy Verified 06/18/18 14:44 Home Medications: Ambulatory Orders Oseltamivir Phosphate [Tamiflu] 75 mg PO BID #10 capsule 06/18/18 COPD: No GI Disorders: Yes (endometriosis) - Immunization History Immunization Up to Date: Yes - Suicide/Smoking/Psychosocial Hx Smoking History: Never smoked Have you smoked in the past 12 months: No Hx Alcohol Use: No Drug/Substance Use Hx: No Substance Use Type: None Review of Systems - Review of Systems Constitutional: Yes: Chills, Diaphoresis, Fever, Malaise, Night Sweats HEENTM: Yes: Nose Congestion *Physical Exam - Vital Signs Last Vital Signs Temp Pulse Resp BP Pulse Ox 101.5 F H 96 H 18 140/75 99 06/18/18 14:45 06/18/18 14:45 06/18/18 14:45 06/18/18 14:45 06/18/18 14:45 - Physical Exam Comments: 06/18/18 17:05 HEAD: NC/AT EYES: Conjuntiva clear Ears: Canals and TM's normal NOSE: No d/c THROAT: Moist mucous membrances, oral pharanx clear, uvula midline NECK: Supple without adenopathy CARDIAC: S1 S2 LUNGS: CTA Full and Equal breath sounds ABDOMEN: Soft NT ND MS: Full ROM in all joints without edema NEUROLOGIC: No gross sensory or motor deficits, NVID SKIN: Normal color and temperature no lesions or rashes Moderate Sedation - Procedure Monitoring Vital Signs: Procedure Monitoring Vital Signs Temperature 101.5 F H 06/18/18 14:45 Pulse Rate 96 H 06/18/18 14:45 Respiratory Rate 18 06/18/18 14:45 Blood Pressure 140/75 06/18/18 14:45 O2 Sat by Pulse Oximetry (%) 99 06/18/18 14:45 ED Treatment Course - Medications Given in the ED: ED Medications Discontinued Medications Generic Name Dose Route Start Last Admin Trade Name Nick PRN Reason Stop Dose Admin Acetaminophen 650 mg 06/18/18 14:48 06/18/18 15:51 Tylenol - PO 06/18/18 14:49 650 mg ONCE ONE Administration Medical Decision Making - Medical Decision Making 06/18/18 17:05 We'll treat for influenza because of close family contact with positive flu *DC/Admit/Observation/Transfer Diagnosis at time of Disposition: Viral syndrome, Influenza - Discharge Dispostion Disposition: HOME Condition at time of disposition: Stable Decision to Admit order: No - Prescriptions Prescriptions: Oseltamivir Phosphate [Tamiflu] 75 mg PO BID #10 capsule - Referrals Referrals: Mahin Michaels [Primary Care Provider] - - Patient Instructions Printed Discharge Instructions: Influenza, DI for Influenza -- Adult Additional Instructions: Please take the Tamiflu as directed. Return to the emergency room should symptoms worsen or go unresolved. Tylenol and Motrin as directed for pain and fever and body aches. Follow-up with your primary care physician in one to 2 days for further evaluation and treatment options. - Post Discharge Activity
== END 2018-06-18 17:07 | disposition home or self-care (01) ==
LOC: JERFT 14:12
DX: J11.1 Influenza due to unidentified influenza virus with other respiratory manifestations (principal)
CPT/HCPCS: 87804; 99281-25

== ENCOUNTER 2019-04-02 19:54 | Emergency (ER) | payer OTHER ==
[2019-04-02 19:59] VITALS: BP 103/50; PULSE 79; TEMP 97.9; BMI 28.1
[2019-04-02] MEDS ORDERED: LIDOCAINE HCL 1%, 10 MG/ML (50 mL VIAL) SQ ONE (21:04)
--- NOTE | 2019-04-02 21:07 | PDOC ---
Documentation entered by Lenin Greenberg SCRIBE, acting as scribe for Nicho Lazcano MD. Nicho Lazcano MD: This documentation has been prepared by the Dionicio morfin Daniel, SCRIBE, under my direction and personally reviewed by me in its entirety. I confirm that the documentation accurately reflects all work, treatment, procedures, and medical decision making performed by me. Attending Attestation - Resident Resident Name: Lita Grimes - ED Attending Attestation I have performed the following: I have examined & evaluated the patient, The case was reviewed & discussed with the resident, I agree w/resident's findings & plan, Exceptions are as noted - HPI HPI: 04/02/19 20:54 The patient is a 33 year old female with no past medical history here today for evaluation of left sided neck pain. The patient reports that on saturday (03/30/19 ) she had a massage, and her neck started to hurt the day after. Pt reports worsening pain with turning her head. Feels like a muscle in her neck is spasming. Pt took ibuprofen with no relief, but icy hot and warm compresses provided mild relief. Patient denies headache. Denies fever, chills. Denies chest pain, shortness of breath. Denies vomiting, diarrhea, abdominal pain. Allergies: NKA PCP: Mahin Michaels - Physicial Exam PE: 04/02/19 20:54 GENERAL: Awake, alert, and fully oriented, in no acute distress. HEAD: No signs of trauma EYES: PERRLA, EOMI, sclera anicteric, conjunctiva clear ENT: Auricles normal inspection, hearing grossly normal, nares patent, oropharynx clear without exudates. Moist mucosa NECK: + L trapezius with palpable spasm, Midline Nontender, no stepoffs, Normal ROM, supple, no lymphadenopathy, JVD, or masses LUNGS: Breath sounds equal, clear to auscultation bilaterally. No wheezes, and no crackles HEART: Regular rate and rhythm, normal S1 and S2, no murmurs, rubs or gallops ABDOMEN: Soft, nontender, normoactive bowel sounds. No guarding, no rebound. No masses EXTREMITIES: Normal range of motion, no edema. No clubbing or cyanosis. No cords, erythema, or tenderness NEUROLOGICAL: Cranial nerves II through XII intact. 5/5 strength and sensation in all extremities, Normal speech, normal gait, normal cerebellar function SKIN: Warm, Dry, normal turgor, no rashes or lesions noted. - Medical Decision Making 04/02/19 21:10 33 F with L neck spasm. No evidence of C-spine injury, no neuro deficits on exam to suggest spinal cord injury. No infectious symptoms to suggest meningitis. - Trigger point injection 04/02/19 21:37 5cc lidocaine 1% injected into trapezius with subsequent resolution of muscle spasm. Pt reports improvement in pain, now able to range neck freely without significant pain. Pt is well appearing, with normal vitals. Clinically stable for DC at this time. I discussed the physical exam findings, ancillary test results and final diagnoses with the patient. I answered all of the patient's questions. The patient was satisfied with the care received and felt comfortable with the discharge plan and treatment plan. The patient agrees to follow up with the primary care physician within 24-72 hours.
[2019-04-02] MEDS ORDERED: LIDOCAINE HCL 1%, 10 MG/ML (20ML VIAL) ONE (21:16)
--- NOTE | 2019-04-02 21:45 | PDOC ---
History of Present Illness - General Chief Complaint: Pain, Acute Stated Complaint: NECK PAIN Time Seen by Provider: 04/02/19 20:09 - History of Present Illness Initial Comments: 04/02/19 21:12 HPI: 33 y/o F with no pmh presenting with 2 days of left sided neck pain worsening over the past day. She reports getting a massage 3 days ago and tolerating it well, however 2 days ago she felt a transient discomfort in her left neck. Yesterday she felt the pain worsen to the extent that she cant normally move her head. Pain is nonradiating and 10/10. Its worse on motion and improved with warm compresses and icyhot rub. She tried 800mg motrin but had no improvement. She states she doesnt know if it was the massage or if she slept wrong but denies any trauma. She also states some nausea and LH due to the pain. She denies any fever, chills, BOWMAN, neck stiffness, confusion, numbness/tingling, falls, syncope, weakness, sore throat, congestion, chest pain, SOB. PMHx: as noted above ROS: as noted SHx: Denies tobacco use; occasional alcohol use; no rec drugs Allergies: NKDA ROS: GENERAL/CONSTITUTIONAL: No fever or chills. No weakness. HEAD, EYES, EARS, NOSE AND THROAT: No change in vision. No ear pain or discharge. No sore throat. CARDIOVASCULAR: No chest pain or shortness of breath RESPIRATORY: No cough, wheezing, or hemoptysis. GASTROINTESTINAL: No nausea, vomiting, diarrhea or constipation. GENITOURINARY: No dysuria, frequency, or change in urination. MUSCULOSKELETAL: +neck pain SKIN: No rash NEUROLOGIC: No headache, vertigo, loss of consciousness, or change in strength/ sensation. ENDOCRINE: No increased thirst. No abnormal weight change HEMATOLOGIC/LYMPHATIC: No anemia, easy bleeding, or history of blood clots. ALLERGIC/IMMUNOLOGIC: No hives or skin allergy. PE: GENERAL: Awake, alert, and fully oriented, no acute distress HEAD: No signs of trauma, normocephalic, atraumatic EYES: EOMI, sclera anicteric, conjunctiva clear ENT: Auricles normal inspection, hearing grossly normal, nares patent, oropharynx clear without exudates. Moist mucosa NECK: Left sided paraspinal tenderness with muscle spasms palpated, no midline tenderness LUNGS: No increased work of breathing, symmetrical chest rise, clear to auscultation bilaterally, no wheezes, crackles or rhonchi HEART: Regular rate and rhythm, normal S1 and S2, no murmurs, peripheral pulses 2+ and equal bilaterally. ABDOMEN: Soft, nondistended, nontender, normoactive bowel sounds. No guarding, no rebound. No masses. No CVAT EXTREMITIES: Normal inspection, Normal range of motion, no edema. No clubbing or cyanosis. NEUROLOGICAL: Cranial nerves II through XII grossly intact. Normal speech, normal gait, no focal sensorimotor deficits SKIN: Warm, Dry, normal turgor, no rashes or lesions noted Past History - Past Medical History Allergies/Adverse Reactions: Allergies Allergy/AdvReac Type Severity Reaction Status Date / Time No Known Allergies Allergy Verified 04/02/19 19:57 Home Medications: Ambulatory Orders Oseltamivir Phosphate [Tamiflu] 75 mg PO BID #10 capsule 06/18/18 COPD: No GI Disorders: Yes (endometriosis) - Immunization History Immunization Up to Date: Yes - Psycho Social/Smoking Cessation Hx Smoking History: Never smoked Have you smoked in the past 12 months: No Hx Alcohol Use: No Drug/Substance Use Hx: No Substance Use Type: None *Physical Exam - Vital Signs Last Vital Signs Temp Pulse Resp BP Pulse Ox 97.9 F 79 18 103/50 L 98 04/02/19 19:58 04/02/19 19:58 04/02/19 19:58 04/02/19 19:58 04/02/19 19:58 Medical Decision Making - Medical Decision Making 04/02/19 21:45 33 y/o F with no pmh presenting with 2 days of left sided neck pain worsening over the past day. VSS, AF. PE notable for left neck paraspinal ttp with muscle spasms palpated -trigger point injection -reassess 04/02/19 21:50 pain improved but not completely resolved discussed with patient likely muscle strain with spasm and that will require time to fully resolve; recommended NSAIDs, ice, rest; patient understands and is comfortable with DC home Discharge - Discharge Information Problems reviewed: Yes Clinical Impression/Diagnosis: Muscle spasm Condition: Improved Disposition: HOME - Follow up/Referral - Patient Discharge Instructions Patient Printed Discharge Instructions: DI for Muscle Strain Additional Instructions: Please return to the ED if new or worsening symptoms including but not limited to worsening neck pain or headache, fever, confusion, persistent vomiting, fainting You may take ibuprofen 800mg every 8 hours. You may ice the affected area as well You may followup with you PCP for re-evaluation of pain in 72 hours as needed - Post Discharge Activity
== END 2019-04-02 22:02 | disposition home or self-care (01) ==
LOC: JER 19:54
PROC: 3E023BZ Introduction of Anesthetic Agent into Muscle, Percutaneous Approach (ICD-10-PCS; principal; 2019-04-02)
DX: M62.838 Other muscle spasm (principal)
CPT/HCPCS: 99283-25

== ENCOUNTER 2022-01-24 11:17 | Emergency (ER) | payer OTHER ==
[2022-01-24 11:29] VITALS: BP 133/64; PULSE 65; RESP 17; TEMP 97.8; BMI 28.1
[2022-01-24] MEDS ORDERED: KETOROLAC TROMETHAMINE 30 MG/1 ML VIAL IM ONE (12:23)
[2022-01-24] MEDS ORDERED: ACETAMINOPHEN/CAFFEINE/BUTALBITAL 1 TAB PO ONE (12:23)
[2022-01-24] MEDS ORDERED: METOCLOPRAMIDE HCL 10 MG TABLET (FP) PO ONE ×2 (12:23→12:36)
[2022-01-24] MEDS ORDERED: ACETAMINOPHEN/CAFFEINE/BUTALBITAL 1 TAB ONE (12:36)
[2022-01-24] MEDS ORDERED: KETOROLAC TROMETHAMINE 30 MG/1 ML VIAL ONE (12:37)
== END 2022-01-24 13:56 | disposition home or self-care (01) ==
LOC: JER 11:17
PROC: 3E0233Z Introduction of Anti-inflammatory into Muscle, Percutaneous Approach (ICD-10-PCS; principal; 2022-01-24)
DX: G43.909 Migraine, unspecified, not intractable, without status migrainosus (principal)
CPT/HCPCS: 99284-25

== ENCOUNTER 2022-08-09 03:32 | Emergency (ER) | payer OTHER ==
[2022-08-09 03:49] VITALS: BMI 28.7
[2022-08-09] MEDS ORDERED: MAG HYDROX/AL HYDROX/SIMETH 30 ML UNIT-DOSE CUP PO ONE (04:17)
[2022-08-09] MEDS ORDERED: FAMOTIDINE 20 MG/50 ML IVPB 20 MG/50 ML MG IVPB ONE ×2 (04:17→04:29)
[2022-08-09] MEDS ORDERED: SODIUM CHLORIDE 1,000 ML IV STA (04:17)
[2022-08-09] MEDS ORDERED: FAMOTIDINE 10 MG/ML VIAL IVPB ONE (04:28)
[2022-08-09] MEDS ORDERED: MAG HYDROX/AL HYDROX/SIMETH 30 ML UNIT-DOSE CUP ONE (04:28)
[2022-08-09 04:58] LABS: BASO % 0.6 % (0-2.0); EOS % 1.5 % (0-4.5); HEMATOCRIT 39.2 % (32.4-45.2); HEMOGLOBIN 13.5 GM/dL (10.7-15.3); LYMPH % 13.3 % (8-40); MCH 30.7 pg (25.7-33.7); MCHC 34.5 g/dl (32.0-36.0); MEAN CELL VOLUME 88.9 fl (80-96); MEAN PLT VOLUME 8.8 fl (7.5-11.1); NEUT % 78.6 % (42.8-82.8); PLATELET COUNT 208 10^3/uL (134-434); RBC 4.41 M/mm3 (3.60-5.2); RDW 13.6 % (11.6-15.6); WHITE BLOOD COUNT 7.1 K/mm3 (4.0-10.0)
[2022-08-09] MEDS ORDERED: ACETAMINOPHEN 1000 MG/100 ML BAG IVPB ONE (05:59)
[2022-08-09] MEDS ORDERED: ACETAMINOPHEN INJECTION 100 ML IVPB ONE (06:00)
[2022-08-09 06:03] LABS: ALBUMIN 3.6 g/dl (3.4-5.0); BLOOD UREA NITROGEN 16.9 mg/dL (7-18); CALCIUM 8.3 mg/dL (8.5-10.1)
[2022-08-09 06:06] LABS: CREATININE 0.7 mg/dL (0.55-1.3)
[2022-08-09 06:08] LABS: BILIRUBIN,TOTAL 0.5 mg/dL (0.2-1); TOT PROT 6.9 g/dl (6.4-8.2)
[2022-08-09 06:41] VITALS: BP 129/74; PULSE 70; RESP 16; TEMP 98.5
[2022-08-09] MEDS ORDERED: POLYETHYLENE GLYCOL (HEALTHYLAX) 3350 17 GM PACKET PO ONE (07:00)
[2022-08-09] MEDS ORDERED: POLYETHYLENE GLYCOL (HEALTHYLAX) 3350 17 GM PACKET ONE (07:55)
== END 2022-08-09 08:11 | disposition home or self-care (01) ==
LOC: JER 03:32
PROC: 3E033GC Introduction of Other Therapeutic Substance into Peripheral Vein, Percutaneous Approach (ICD-10-PCS; principal; 2022-08-09)
PROC: 3E033GC Introduction of Other Therapeutic Substance into Peripheral Vein, Percutaneous Approach (ICD-10-PCS; 2022-08-09)
DX: R10.84 Generalized abdominal pain (principal)
CPT/HCPCS: 36415; 71046-TC-FY; 74177-TC; 80053; 83605; 83690; 84703; 85025; 93005; 93010; 99285-25; Q9967

== ENCOUNTER 2023-01-16 18:35 | Emergency (ER) | payer OTHER ==
[2023-01-16 18:46] VITALS: BP 107/62; PULSE 75; RESP 18; TEMP 98.3; BMI 28.3
[2023-01-16] MEDS ORDERED: IBUPROFEN 600 MG TABLET (FP) PO ONE ×2 (20:14→20:26)
[2023-01-16] MEDS ORDERED: ACETAMINOPHEN 500 MG TABLET (FP) PO ONE (20:14)
[2023-01-16] MEDS ORDERED: ACETAMINOPHEN 500 MG TABLET (FP) ONE (20:26)
[2023-01-16 21:35] LABS: THROAT:GRP A STREP NOT DETECTED (NOTDETECTED)
== END 2023-01-16 20:49 | disposition home or self-care (01) ==
LOC: JERFT 18:35
DX: H57.89 Other specified disorders of eye and adnexa (principal); J02.9 Acute pharyngitis, unspecified; R09.81 Nasal congestion; M79.10 Myalgia, unspecified site; R68.83 Chills (without fever); H10.32 Unspecified acute conjunctivitis, left eye; Z20.822 Contact with and (suspected) exposure to COVID-19
CPT/HCPCS: 0241U-QW; 87651; 99283-25

== ENCOUNTER 2023-05-06 17:38 | Emergency (ER) | payer OTHER ==
[2023-05-06 17:51] VITALS: BP 114/57; PULSE 73; RESP 18; TEMP 98.1; BMI 30.2
== END 2023-05-06 20:06 | disposition home or self-care (01) ==
LOC: JERFT 17:38
DX: R09.81 Nasal congestion (principal); R06.7 Sneezing; R07.0 Pain in throat; H57.89 Other specified disorders of eye and adnexa; H04.89 Other disorders of lacrimal system; T78.40XA Allergy, unspecified, initial encounter; Z20.822 Contact with and (suspected) exposure to COVID-19
CPT/HCPCS: 0241U-QW; 87651; 99283-25

== ENCOUNTER 2023-11-22 23:32 | Emergency (ER) | payer OTHER ==
[2023-11-22 23:38] VITALS: BP 107/67; PULSE 72; RESP 18; TEMP 98.1; BMI 28.5
== END 2023-11-23 01:03 | disposition home or self-care (01) ==
LOC: JER 23:32
DX: S93.401A Sprain of unspecified ligament of right ankle, initial encounter (principal); M79.89 Other specified soft tissue disorders; X50.1XXA Overexertion from prolonged static or awkward postures, initial encounter
CPT/HCPCS: 73610-TC-RT-FY; 73630-TC-RT-FY; 99283-25